=== PATIENT | female | born 1980 | race Caucasian/White ===

== ENCOUNTER 2021-10-04 19:45 | Emergency (ER) | payer BC, SELFPAY ==
[2021-10-04 19:46] VITALS: BP 198/106; PULSE 68; RESP 16; TEMP 36.8; O2SAT 97; BMI 37.7
--- NOTE | 2021-10-04 20:06 | XR_ITS ---
PROCEDURE INFORMATION: Exam: XR Right Foot Exam date and time: 10/04/2021 8:06 PM Age: 41 years old Clinical indication: Swelling, leg or foot; Patient HX: Fall today , pain and swelling, lateral pain and posterior ankle pain; Additional info: Injury TECHNIQUE: Imaging protocol: XR Right foot. Views: 3 or more views. COMPARISON: CR XR ANKLE RT MIN 3V 10/04/2021 8:11 PM FINDINGS: Bones/joints: There is no evidence of acute fracture.There is no evidence of malalignment or dislocation. Soft tissues: Normal. IMPRESSION: There is no evidence of acute fracture.There is no evidence of malalignment or dislocation.
--- NOTE | 2021-10-04 20:06 | XR_ITS ---
PROCEDURE INFORMATION: Exam: XR Right Ankle Exam date and time: 10/04/2021 8:06 PM Age: 41 years old Clinical indication: Swelling, leg or foot; Patient HX: Fall today, lateral pain and swelling, posterior pain; Additional info: Injury TECHNIQUE: Imaging protocol: XR Right ankle. Views: 3 or more views. COMPARISON: No relevant prior studies available. FINDINGS: Bones/joints: There is no evidence of acute fracture.There is no evidence of malalignment or dislocation. Soft tissues: Bimalleolar soft tissue swelling IMPRESSION: There is no evidence of acute fracture.There is no evidence of malalignment or dislocation.
--- NOTE | 2021-10-04 21:19 | HMH.EDLOEX ---
ED Disposition Clinical Impression: Ankle sprain and strain Sprain of foot, right Qualifiers: Encounter type: initial encounter Qualified Code(s): S93.601A - Unspecified sprain of right foot, initial encounter Disposition: Home, Self-Care Condition on Discharge: Good Instructions: DI for Ankle Sprain Additional Instructions: - use advil and tyenol , ice and elevate and call pcp for follow up and podiatry Referrals: Orville Knight MD [Primary Care Provider] - Sonia Norman DPM [Staff Physician] - - Critical Care Critical Care Time: No Attestation: On 10/04/21, the high probability of a clinically significant, sudden or life threatening deterioration of the following system(s) required my full and direct attention, intervention and personal management. The time I documented below is in addition to time spent performing reported procedures but includes the following listed in this critical care notation. Medical Decision Making - Medical Records Medical records reviewed: Yes: I reviewed the patient's medical records. - Pablo Inquiry Pt receiving controlled substance: No Vital Signs: 10/04/21 19:46 Temperature 98.3 F Temperature Source Oral Pulse Rate [Right Radial] 68 Respiratory Rate 16 Blood Pressure [Right Arm] 198/106 H Blood Pressure Mean [Right Arm] 136 Blood Pressure Source [Right Arm] Automatic Cuff Blood Pressure Position [Right Arm] Sitting 02 Sat by Pulse Oximetry 97 Oxygen Delivery Method Room Air Orders (Tests/Meds): ED MEDICATIONS Discontinued Medications Generic Name Dose Route Start Last Admin Trade Name Freq PRN Reason Stop Dose Admin Acetaminophen 1,000 mg 10/04/21 20:07 10/04/21 20:08 Acetaminophen 500mg Tab PO 10/04/21 20:08 1,000 mg ONCE ONE Administration - Radiology Data #1 Image(s): Ankle, Foot/Toes Image Reviewed: Yes I have reviewed radiologist's interpretation Preliminary Findings: No Fracture Seen Medical Decision Narrative: acute injury rt ankle/foot with sts and dec rom and neg xrays - will refer to podiatry Lower Extremity Injury HPI - General Chief Complaint: Extremity Injury, Lower Stated Complaint: AO fall injured R ankle Time Seen by Provider: 10/04/21 20:30 Mode of Arrival: Wheelchair Source of Information: Patient, Medical Record Limitations: No Limitations Description of Symptoms (Recalled from ER Triage Doc. by RN): Pt reports missing the curb and injuring her right ankle at 6pm. Right ankle is swollen. Pedal pulse present using doppler. - History of Present Illness HPI Narrative: acute tito injury to rt foot/ankle - pain and unable to bear wt and has sts MD complaint: ankle injury, foot injury Onset (ago): hour(s) Injury: Right: ankle, foot Type of Injury: eversion Place: street/outdoors Severity: moderate Exacerbating factors: weight bearing, movement, palpation Context: walking Associated symptoms: snap/pop sensation, swelling, unable to bear weight Other symptoms: none - Related Data Home Medications Medication Instructions Recorded Confirmed albuterol sulfate 90 mcg/actuation 2 puffs INHALATION Q4HP PRN 25 10/22/17 04/17/19 aerosol inhaler Days #18 estradiol 0.1 mg/24 hr semiweekly 1 patch TOPICAL WEEKLY 28 Days #8 10/22/17 04/17/19 transdermal patch lisinopril 10 mg tablet 10 mg PO QDAY 10/22/17 04/17/19 montelukast 10 mg tablet 10 mg PO DAILY 30 Days #30 10/22/17 04/17/19 Hydromorphone HCl [Hydromorphone 2 - 4 mg PO Q6HP PRN 04/17/19 04/17/19 2mg Tab] Ondansetron [Zofran 4mg ODT] 4 mg PO Q4HP PRN 04/17/19 04/17/19 Sulfamethoxazole/Trimethoprim 1 tab PO Q12H 04/17/19 04/17/19 [Sulfamethoxazole-Tmp Ds Tablet] Previous Rx's Medication Instructions Recorded Hydromorphone HCl [Dilaudid 2mg 2 mg PO Q6H #8 tab 04/17/19 tablet] Allergies Allergy/AdvReac Type Severity Reaction Status Date / Time Codeine Allergy Unknown UNKNOWN Uncoded 10/22/17 15:42 [facility]
[2021-10-04 21:52] VITALS: BP 185/107; PULSE 70; RESP 16; TEMP 36.6; O2SAT 99
== END 2021-10-04 21:55 | disposition home or self-care (01) ==
PROVIDERS: Emergency Provider Emergency Medicine; PCP Family Medicine
DX: S93.401A Sprain of unspecified ligament of right ankle, initial encounter (principal); X50.1XXA Overexertion from prolonged static or awkward postures, initial encounter; Y93.89 Activity, other specified; Y92.480 Sidewalk as the place of occurrence of the external cause
CPT/HCPCS: 73610; 73630; 99282

== ENCOUNTER → 2021-10-18 08:45 | Outpatient (CLI) | payer BC, SELFPAY ==
--- NOTE | 2021-10-18 09:22 | MR_ITS ---
PROCEDURE INFORMATION: Exam: MR Right Lower Extremity Other Than Joint Without and With Contrast; Foot Exam date and time: 10/18/2021 9:22 AM Age: 41 years old Clinical indication: Pain and injury or trauma; Blunt trauma and sprain or strain; Right; Patient HX: S/P fall with lateral and anterior RT ankle and foot pain. ; Additional info: Sprain and strain TECHNIQUE: Imaging protocol: MR of the Right lower extremity without and with intravenous contrast. Exam focused on the foot. Contrast material: PROHANCE; Contrast volume: 20 ml; Contrast route: IV; COMPARISON: 1. CR XR FOOT RT MIN 3V 10/04/2021 8:13 PM 2. CR XR ANKLE RT MIN 3V 10/04/2021 8:11 PM FINDINGS: Limitations: The large [id number] utilized to image the entire foot and ankle results in proportionally lower anatomic detail. Bones and cartilage: Osseous injuries in the ankle/hindfoot region are better demonstrated on the smaller cfyig-ut-eaze ankle MRI. Please see ankle MRI report for details. No fracture or dislocation involving the forefoot or midfoot. Joint spaces: A moderate effusion involves the ankle joint. LIGAMENTS: Lisfranc ligament: Unremarkable. No evidence of tear. TENDONS: Flexor tendons of foot: Unremarkable. No evidence of tear. Tibialis posterior tendon: Trace tenosynovitis involves the tibialis posterior tendon. Peroneal tendons: Trace tenosynovitis involves the peroneal tendon sheath. Extensor tendons of foot: Unremarkable. No evidence of tear. Tibialis anterior tendon: Unremarkable as visualized. Tarsal canal (Sinus tarsi): Edema in the sinus tarsi region is proportional to the adjacent soft tissue edema. The cervical ligament appears intact. Tarsal tunnel: Unremarkable. Muscles: Mild to moderate muscle edema is favored to be posttraumatic. Soft tissues: Severe soft tissue edema involves the foot. A crescentic heterogeneously enhancing focus of complex tissue located in the subcutaneous fat plantar to the fifth metatarsal head measures approximately 1.1 x 1.5 x 0.6 cm (series 9/image 20). A similar but smaller collection located plantar to the third metatarsal head measures 0.6 x 0.3 cm (series 9/image 17). The well-defined borders without significant surrounding edema favors a chronic pseudobursa, although traumatic soft tissue injuries cannot be entirely excluded. Plantar fascia: Probable contusions involving both sides of the calcaneocuboid joint. Other findings: Significant traumatic injuries involving the ankle/hindfoot are better documented on the dedicated ankle MRI. Please see ankle MRI report for details in the ankle/hindfoot region. IMPRESSION: 1. Significant traumatic injuries involving the ankle/hindfoot are better documented on the dedicated ankle MRI. Please see ankle MRI report for details in the ankle/hindfoot region. 2. No forefoot fracture. 3. Probable pseudobursae plantar to the third and fifth metatarsal heads, although posttraumatic soft tissue injury cannot be entirely excluded.
--- NOTE | 2021-10-18 09:22 | MR_ITS ---
PROCEDURE INFORMATION: Exam: MR Right Lower Extremity Joint Without and With Contrast; Ankle Exam date and time: 10/18/2021 9:22 AM Age: 41 years old Clinical indication: Injury or trauma; Sprain or strain; Right; Patient HX: S/P fall with lateral and anterior RT ankle and foot pain and edema. ; Additional info: Sprain and strain TECHNIQUE: Imaging protocol: MR of the Right lower extremity without and with contrast. Exam focused on the ankle. Contrast material: PROHANCE; Contrast volume: 20 ml; Contrast route: IV; COMPARISON: 1. CR XR ANKLE RT MIN 3V 10/04/2021 8:11 PM 2. CR XR FOOT RT MIN 3V 10/04/2021 8:13 PM FINDINGS: Limitations: Motion artifact. Bones and cartilage: A fracture involving the medial malleolus is approximately 1.7 mm displaced laterally and nondisplaced along the medial cortex (series 15/images 14-15). Bone marrow edema involves the tip of the fibula where there cortical irregularity favored to represent a small avulsion fracture. Bone detail would be more definitively identified utilizing CT. Bone marrow edema along the lateral aspect of the calcaneocuboid joint present both superiorly and inferiorly suggesting contusions. A contusion involves the posteromedial talar dome with additional patchy edema involving the talar head and body. Joint spaces: A moderate effusion involves the ankle joint. LIGAMENTS: Distal tibiofibular syndesmosis: Unremarkable. No tear. Anterior talofibular ligament: The anterior talofibular ligament has heterogeneous intermediate signal intensity. Since this injury appears to be in the subacute stage, followup imaging would better define whether this represents a low or intermediate grade partial-thickness tear. Posterior talofibular ligament: The posterior talofibular ligament is thickened and has heterogeneous increased T2 signal, likely representing low grade injury. Calcaneofibular ligament: The calcaneofibular ligament has intermediate signal intensity, suggesting low to intermediate grade injury that would be better defined on followup imaging since this injury is in the subacute stage. Deltoid ligament complex: A probable intermediate grade partial-thickness tear involves the deep component of the deltoid ligament. The superficial component has increased T2 signal and surrounding edema consistent with sprain. Assessment is limited due to the subacute nature of the injury an adjacent fracture. TENDONS: Flexor tendons of foot: Unremarkable as visualized. Tibialis posterior tendon: Trace tenosynovitis involves the tibialis posterior tendon. Peroneal tendons: Trace tenosynovitis involves the peroneal tendon sheath. Extensor tendons of foot: Unremarkable as visualized. Tibialis anterior tendon: Unremarkable. Achilles tendon: There is no tear or significant tendinosis involving the Achilles tendon. Tarsal canal (Sinus tarsi): Edema in the sinus tarsi region is proportional to the adjacent soft tissue edema. The cervical ligament appears intact. Tarsal tunnel: Unremarkable. Muscles: Mild edema involving the distal calf and foot musculature is likely posttraumatic. Soft tissues: A bilobed collection of high T1 signal along the anterolateral aspect of the ankle involves a 0.4 x 1.4 x 2.8 cm region (AP, ML, CC), as measured on series 12/image 16 and series 11/image 15. The appearance is most typical for hemorrhage in the soft tissues. Severe soft tissue edema involves the ankle and visualized portion of the foot. There is a focal collection of fluid measuring 1.5 x 1.3 cm along the far medial aspect of the anterior calcaneus near the calcaneonavicular joint that suggests of injury in this
== END ==
LOC: RAD 08:46
PROVIDERS: PCP Family Medicine; Visit Provider Podiatrist
DX: S93.601A Unspecified sprain of right foot, initial encounter (principal)
CPT/HCPCS: 73720; 73723; A9576

== ENCOUNTER → 2021-10-25 13:05 | Outpatient (CLI) | payer BC, SELFPAY ==
--- NOTE | 2021-10-25 13:06 | CT_ITS ---
FINAL REPORT CLINICAL HISTORY: fracture evaluation FINDINGS: CT RIGHT ANKLE WITHOUT CONTRAST Technique: Axial images through the right ankle were performed by computed tomography. Sagittal and coronal reconstruction images were performed. This study was performed with techniques to keep radiation doses as low as reasonably achievable (ALARA). Individualized dose reduction techniques using automated exposure control or adjustment of mA and/or kV according to the patient's size were employed. There is a comminuted fracture of the tip of the lateral malleolus. There is a tiny calcification in the posterior medial tibiotalar joint, tiny avulsion fracture not excluded. There is an avulsion fracture of the anterior lateral calcaneus. The talar dome is intact. The remaining osseous structures are intact. No dislocation identified. There is soft tissue edema. A small joint effusion is present. There is no loculated fluid collection. IMPRESSION: Fractures of the lateral malleolus and anterior calcaneus. Reviewed, Interpreted and Dictated by Tiffany Troncoso MD Transcribed by Wu Srinivasan Authenticated by Tiffany Troncoso MD on 10/25/2021 02:16:55 PM [facility]
== END ==
LOC: RAD 13:06
PROVIDERS: PCP Family Medicine; Visit Provider Podiatrist
DX: M25.571 Pain in right ankle and joints of right foot (principal); M25.371 Other instability, right ankle; S99.911A Unspecified injury of right ankle, initial encounter
CPT/HCPCS: 73700

== ENCOUNTER → 2021-11-25 13:38 | Outpatient (CLI) | payer BC, SELFPAY ==
--- NOTE | 2021-11-25 13:46 | XR_ITS ---
FINAL REPORT CLINICAL HISTORY: fracture follow up COMPARISON: 10/04/2021 FINDINGS: RIGHT ANKLE 3 views of the right ankle were obtained. Again seen is a nondisplaced fracture at the inferior tip of the lateral malleolus without significant callus formation. No acute fracture is identified. There are small calcifications adjacent to the lateral calcaneus. IMPRESSION: Nondisplaced fracture at the inferior tip of the lateral malleolus without significant callus formation seen. Reviewed, Interpreted and Dictated by Mauro Parson III, MD Transcribed by Cindy Rushing Authenticated by Mauro Parson III, MD on 11/25/2021 03:02:21 PM [facility]
--- NOTE | 2021-11-25 13:46 | XR_ITS ---
FINAL REPORT CLINICAL HISTORY: fracture follow up COMPARISON: 10/04/2021 FINDINGS: RIGHT FOOT 3 views of the right foot were obtained. Again seen is a fracture of the inferior tip of lateral malleolus which is partially visualized as well as a probable small fracture of the distal lateral calcaneus. No significant callus formation is seen. No acute fracture is identified. IMPRESSION: Fractures of the inferior tip of the lateral malleolus and lateral calcaneus without significant callus formation. Reviewed, Interpreted and Dictated by Mauro Parson III, MD Transcribed by Cindy Rushing Authenticated by Mauro Parson III, MD on 11/25/2021 03:02:20 PM [facility]
== END ==
LOC: RAD 13:40
PROVIDERS: PCP Nurse Practitioner Family; Visit Provider Podiatrist
DX: S92.001A Unspecified fracture of right calcaneus, initial encounter for closed fracture (principal); S93.621A Sprain of tarsometatarsal ligament of right foot, initial encounter; M25.571 Pain in right ankle and joints of right foot; S82.51XA Displaced fracture of medial malleolus of right tibia, initial encounter for closed fracture; S82.61XA Displaced fracture of lateral malleolus of right fibula, initial encounter for closed fracture
CPT/HCPCS: 73610; 73630

== ENCOUNTER → 2022-01-06 13:06 | Outpatient (CLI) | payer BC, SELFPAY ==
--- NOTE | 2022-01-06 13:14 | XR_ITS ---
FINAL REPORT CLINICAL HISTORY: fracture follow up COMPARISON: November 25, 2021 FINDINGS: RIGHT ANKLE: Three views of the right ankle were obtained. Again seen is cortical disruption of the medial aspect of the inferior lateral malleolus. No callus formation is seen. The joint spaces and mortise are intact. There is no soft tissue abnormality. IMPRESSION: Redemonstration of inferior lateral malleolus fracture, similar to prior. Reviewed, Interpreted and Dictated by Avi Nicole MD Transcribed by Wu Srinivasan Authenticated by Avi Nicole MD on 01/06/2022 02:29:54 PM [facility]
== END ==
LOC: RAD 13:07
PROVIDERS: PCP Family Medicine; Visit Provider Podiatrist
DX: M25.571 Pain in right ankle and joints of right foot (principal); S82.51XA Displaced fracture of medial malleolus of right tibia, initial encounter for closed fracture; S82.61XA Displaced fracture of lateral malleolus of right fibula, initial encounter for closed fracture; S92.001A Unspecified fracture of right calcaneus, initial encounter for closed fracture
CPT/HCPCS: 73610

== ENCOUNTER 2022-03-09 13:12 | Emergency (ER) | payer BC, SELFPAY ==
[2022-03-09 13:13] VITALS: BP 171/101; PULSE 99; RESP 18; TEMP 36.5; O2SAT 98; BMI 35.0
[2022-03-09 13:20] VITALS: BP 171/101; PULSE 77; O2SAT 98
--- NOTE | 2022-03-09 13:26 | CT_ITS ---
PROCEDURE INFORMATION: Exam: CT Abdomen And Pelvis Without Contrast Exam date and time: 03/09/2022 1:35 PM Age: 41 years old Clinical indication: Other: Right flank pain; Additional info: R/O stone, right flank pain TECHNIQUE: Imaging protocol: Computed tomography of the abdomen and pelvis without contrast. Radiation optimization: All CT scans at this facility use at least one of these dose optimization techniques: automated exposure control; mA and/or kV adjustment per patient size (includes targeted exams where dose is matched to clinical indication); or iterative reconstruction. COMPARISON: [facility] CT abdomen pelvis wo con 04/17/2019 5:03 AM FINDINGS: Liver: Normal. No mass. Gallbladder and bile ducts: Cholecystectomy. Pancreas: Normal. No ductal dilation. Spleen: Normal. No splenomegaly. Adrenal glands: Normal. No mass. Kidneys and ureters: 2.3 mm partially obstructing calculus distal right ureter. Associated moderate right hydronephrosis. Persistent bilateral punctate nonobstructing renal calculi. Stomach and bowel: Postoperative changes again demonstrated involving the stomach suggestive of previous gastric bypass. Clinically correlate. Scattered diverticula are demonstrated within the sigmoid colon. Findings compatible with mild diverticulosis. Appendix: No evidence of appendicitis. Intraperitoneal space: Unremarkable. No free air. No significant fluid collection. Vasculature: Unremarkable. No abdominal aortic aneurysm. Lymph nodes: Unremarkable. No enlarged lymph nodes. Urinary bladder: Unremarkable as visualized. Reproductive: Unremarkable as visualized. Bones/joints: See Stomach and bowel finding. Multilevel disc degeneration at L4-5 as well as at T11-12. Findings have minimally progressed at T11-12. Soft tissues: Unremarkable. IMPRESSION: 1. 2.3 mm partially obstructing calculus distal right ureter. Associated moderate right hydronephrosis. 2. Bilateral nephrolithiasis.
--- NOTE | 2022-03-09 13:29 | HMH.EDGENADL ---
ED Disposition Clinical Impression: Right ureteral calculus, Nephrolithiasis Disposition: Home, Self-Care Condition on Discharge: Good Instructions: DI for Kidney Stones Additional Instructions: Flomax as prescribed. Percocet as needed for pain. Zofran as needed for nausea. Additional instructions for KIDNEY STONE (URETERAL CALCULUS): See Dr. Montoya as soon as possible for further evaluation. Drink plenty of fluids. Strain your urine and save any stones you catch. Return immediately if you develop a fever or have uncontrollable vomiting or uncontrollable pain. What is known about DIET and KIDNEY STONES: Most kidney stones contain calcium oxalate. The logical assumption would be that you should avoid calcium and oxalate in your diet. Contrary to what you would think, this is not necessarily the case. What is actually recommended for kidney stone prevention is a diet that contains MODERATELY HIGH AMOUNTS OF CALCIUM and is LOW IN SODIUM with PLENTY OF FLUIDS. Avoiding oxalate containing foods is recommended by some experts, but is controversial. Following the DASH (Dietary Approaches to Stop Hypertension) has been shown to significantly reduce the incidence of kidney stones. The DASH diet encourages you to reduce the sodium in your diet and eat a variety of foods rich in nutrients that help lower blood pressure, such as potassium, calcium and magnesium. Recommendations: Fluids: It is widely agreed upon that you need to drink plenty of fluids. A minimum would be 8-10 glasses (8 oz each) of fluid per day. Some experts recommend as much as 14-15 glasses a day. Sodium: The way to lower calcium in your urine is to lower your sodium intake. Try not to get more than 1500 mg a day. Calcium: Dietary calcium prevents absorption of oxalate. Make sure you get about 1000 to 1200 mg a day. You can get enough calcium from dairy products without taking supplements. Calcium should be ingested with meals, not in between meals. You need to get your calcium at mealtime to decrease the absorption of oxalate from other foods. Oxalate: Although some experts recommend avoiding oxalate in your diet, there have been no studies that prove this works. Eating more calcium will reduce oxalate absorption, and is probably all that is needed to reduce oxalate in your urine. Oxalate containing foods are generally good for you in all other respects - leafy greens, nuts, etc... So avoiding them unnecessarily might not be the best thing for your health. If you want to do something to avoid oxalate, avoid spinach and rhubarb - those are extremely high in oxalate (or at least eat a high calcium meal with these). ALSO: If you retrieve your stone by straining your urine, take it to your physician for stone analysis, which can help tailor your dietary recommendations. For further reading, check out the [facility] web page about the kidney stone diet: [email or web address]/ Additional instructions for CONTROLLED SUBSTANCES: You have been prescribed a medication that is a controlled substance. Controlled substances include pain medications known as opiates and sedative nerve medications known as benzodiazepines. Tramadol, fioricet, and gabapentin are also controlled substances. Some common opiates include: Codeine (such as Tylenol #3) Hydrocodone (Vicodin, Lortab, Lorcet, [place]) Oxycodone (Percocet, Percodan, Oxycodone, Oxy IR) Some common benzodiazepines include: Diazepam (Valium) Lorazepam (Ativan) Alprazolam (Xanax) Clonazepam (Klonopin) Oxazepam (Serax) All of these controlled substances are highly addictive and frequently abused. Misuse can and frequently does lead to addiction as well as overdose and . Medication should be stored in a locked cabinet or other secure storage unit. Do not store the medication in a motor vehicle. Short term supplies, 3 days
[2022-03-09 13:30] VITALS: BP 174/108; PULSE 79; O2SAT 96
[2022-03-09 13:30] LABS: Microscopic, Urine URINE MICROSCOPIC (MICROSCOPIC)
--- NOTE | 2022-03-09 13:38 | PC.NURSE ---
TO CT PER WHEELCHAIR
[2022-03-09 13:39] LABS: Appearance,Urine CLEAR (Clear); Blood, Urine 3+ (Negative); Color,Urine YELLOW (Yellow); Glucose,Urine (UA) Negative (Negative); Ketones,Urine TRACE (Negative); Leukocyte Esterase,Urine Negative (Negative); Nitrate,Urine Negative (Negative); Protein,Urine TRACE (Negative); Specific Gravity, Urine 1.025 (1.005-1.030); Urobilinogen,Urine 0.2 EU/dl (0.2)
[2022-03-09 13:45] VITALS: BP 166/89; O2SAT 96
[2022-03-09 13:54] LABS: Chloride 101 mmol/L (98-107)
[2022-03-09 13:55] LABS: Potassium 3.4 mmoL/L (3.5-5.1); Sodium 139 mmol/L (136-145)
[2022-03-09 13:57] LABS: Alanine Aminotransferase 45 U/L (12-78); Alkaline Phosphatase 99 U/L (38-126); Aspartate Amino Transferase 77 U/L (14-36); Bilirubin,Total 0.7 mg/dl (0.2-1.3); Blood Urea Nitrogen 11 mg/dl (7-17); Creatinine Clearance Estimated 130 mL/min (50-200); Estimated Glomerular Filt Rate 79 ml/min (>60); GFR (African American) 95 ML/MIN (>60)
[2022-03-09 13:58] LABS: Albumin Level 4.7 g/dl (3.5-5.0); Albumin/Globulin Ratio 1.6 (1.1-1.8); Anion Gap 13.4 mEq/L (5-15); Calcium 9.6 mg/dl (8.4-10.2); Carbon Dioxide 28 mmol/L (22.0-30.0); Glucose 132 mg/dl (74-100); Total Protein,Serum 7.7 g/dl (6.3-8.2)
[2022-03-09 14:00] VITALS: BP 150/82; PULSE 77; O2SAT 97
[2022-03-09 14:07] LABS: Basophils # 0.2 K/mm3 (0-0.2); Basophils % 2.4 % (0.1-2.0); Eosinophils # 0.2 K/mm3 (0.0-0.4); Eosinophils % 2.9 % (0.1-12.0); Hematocrit 48.9 % (37.0-47.0); Hemoglobin 15.5 g/dL (12.2-16.2); Lymphocytes # 1.4 K/mm3 (0.7-4.5); Lymphocytes % 20.7 % (10-50); Mean Corpuscular HGB Conc 31.7 g/dL (31.8-35.4); Mean Corpuscular Hemoglobin 29.8 pg (27.0-31.2); Mean Platelet Volume 8.2 fl (7.4-10.4); Monocytes # 0.4 K/mm3 (0.1-1.0); Monocytes % 5.3 % (1.7-9.3); Neutrophils # 4.7 K/mm3 (1.8-7.8); Neutrophils % 68.8 % (37.0-80.0); Platelet Count 336 K/mm3 (142-424); White Blood Count 6.8 K/mm3 (4.8-10.8)
[2022-03-09 14:49] LABS: Bilirubin,Urine 1+ (Negative)
[2022-03-09 14:49] LABS: Lipase 157 U/L (23-300)
[2022-03-09 14:50] LABS: Squamous Epithelial Cell,Urine Occasional #/hpf (0-5)
[2022-03-09 14:51] LABS: Bacteria,Urine Trace /lpf
[2022-03-09 15:37] VITALS: BP 150/75; PULSE 73; RESP 16; TEMP 36.5; O2SAT 97
== END 2022-03-09 15:39 | disposition home or self-care (01) ==
PROVIDERS: Emergency Provider Emergency Medicine; PCP Nurse Practitioner Family
DX: N20.2 Calculus of kidney with calculus of ureter (principal); Z87.442 Personal history of urinary calculi; Z88.6 Allergy status to analgesic agent; J45.909 Unspecified asthma, uncomplicated; I10 Essential (primary) hypertension; G43.909 Migraine, unspecified, not intractable, without status migrainosus; F41.9 Anxiety disorder, unspecified; F32.A Depression, unspecified; Z90.49 Acquired absence of other specified parts of digestive tract; Z90.79 Acquired absence of other genital organ(s)
CPT/HCPCS: 74176; 80053; 81001; 83690; 85025; 96365; 96374; 96375; 99284; J2405

== ENCOUNTER → 2022-05-13 16:12 | Outpatient (CLI) | payer BC, SELFPAY ==
--- NOTE | 2022-05-13 16:20 | XR_ITS ---
PROCEDURE INFORMATION: Exam: XR Cervical Spine Exam date and time: 05/13/2022 4:36 PM Age: 41 years old Clinical indication: Other: Headache; Additional info: Neck pain, headaches TECHNIQUE: Imaging protocol: Radiologic exam of the cervical spine. Views: 4 or 5 views. COMPARISON: No relevant prior studies available. FINDINGS: Bones/joints: No acute fracture or subluxation. Mild disc space narrowing at C4-C5. No bony foraminal stenosis. Soft tissues: Unremarkable. Lungs: Lung apices are clear. IMPRESSION: No acute findings.
== END ==
LOC: RAD 16:14
PROVIDERS: PCP Family Medicine; Visit Provider Nurse Practitioner Family
DX: M54.2 Cervicalgia (principal)
CPT/HCPCS: 72050

== ENCOUNTER 2022-08-08 11:39 | Emergency (ER) | payer BC, SELFPAY ==
[2022-08-08 12:44] VITALS: BP 0/0; PULSE 0; RESP 0; TEMP -17.7; TEMP 0; O2SAT 0
== END 2022-08-08 12:45 | disposition left against medical advice (07) ==
LOC: UTC 11:42
PROVIDERS: Emergency Provider Physician Assistant; PCP Family Medicine
DX: Z53.21 Procedure and treatment not carried out due to patient leaving prior to being seen by health care provider (principal)

== ENCOUNTER → 2022-08-19 15:19 | Outpatient (CLI) | payer BC, SELFPAY ==
--- NOTE | 2022-08-19 15:25 | CT_ITS ---
FINAL REPORT TECHNIQUE: Axial images through the abdomen and pelvis were performed without contrast. This study was performed with techniques to keep radiation doses as low as reasonably achievable, (ALARA). Individualized dose reduction techniques using automated exposure control or adjustment of mA and/or kV according to the patient's size were employed. CLINICAL HISTORY: NEPHOLITHIASIS,RIGHT FLANK PAIN , HEMATURIA, HX OF KIDNEY STONES , PAIN X 6DAYS. COMPARISON: 03/09/2022 FINDINGS: ABDOMEN: The lung bases are clear. The heart size is normal. Limited images of the liver are unremarkable. The patient is status post hysterectomy. There are postoperative changes from gastric sleeve. The spleen is normal. No adrenal mass is identified. The aorta is normal in caliber. There is no significant free fluid or adenopathy. There are multiple bilateral nonobstructing stones measuring 3 mm or less. There is no hydronephrosis. PELVIS: The appendix is normal. No ureteral stone is identified. The patient is status post hysterectomy. The urinary bladder is unremarkable. There is no significant free fluid or adenopathy. IMPRESSION: Bilateral nephrolithiasis without hydronephrosis. Reviewed, Interpreted and Dictated by Mauro Parson III, MD Transcribed by Court Sahu Authenticated and [facility]
== END ==
PROVIDERS: PCP Nurse Practitioner Family; Visit Provider Nurse Practitioner Family
DX: N20.0 Calculus of kidney (principal)
CPT/HCPCS: 74176

== ENCOUNTER → 2022-12-31 09:44 | Outpatient (CLI) | payer BC, SELFPAY ==
--- NOTE | 2022-12-31 09:54 | CT_ITS ---
FINAL REPORT TECHNIQUE: Multiple axial CT sections were performed from the foramen magnum to the vertex. Coronal reformatted images were also obtained. Precontrast and postcontrast injection images were obtained. This study was performed with technique to keep radiation doses as low as reasonably achievable, (ALARA). Individualized dose reduction techniques using automated exposure control or adjustment of mA and/or kV according to the patient size were employed. CLINICAL HISTORY: HEADACHE, patient states back of neck and head and into right side of head COMPARISON: NONE FINDINGS: The ventricles are normal in size. There is no evidence of hemorrhage. No masses are identified. No extra-axial fluid collection is seen. There is presumed postoperative changes in the sinuses. There is moderate diffuse mucoperiosteal thickening in the sinuses consistent with widespread sinusitis. No osseous abnormality is seen on the bone window images. Postcontrast images demonstrate no abnormal enhancement. IMPRESSION: Widespread sinusitis. Reviewed, Interpreted and Dictated by Mauro Parson III, MD Transcribed by Eri Kay Authenticated and [facility]
[2022-12-31 10:32] LABS: Blood Urea Nitrogen 16 mg/dl (7-17); Estimated Glomerular Filt Rate 78 ml/min (>60); GFR (African American) 95 ML/MIN (>60)
== END ==
LOC: RAD 09:45
PROVIDERS: PCP Nurse Practitioner Family; Visit Provider Nurse Practitioner Family
DX: G44.89 Other headache syndrome (principal)
CPT/HCPCS: 36415; 70470; 82565; 84520; Q9966

== ENCOUNTER → 2023-06-04 16:03 | Outpatient (CLI) | payer BC, SELFPAY ==
[2023-06-04 14:34] LABS: Amphetamine/Metha Screen,Urine Negative ng/ml (<1000); Phencyclidine Screen,Urine Negative ng/ml (<25)
[2023-06-04 14:35] LABS: Barbiturates Screen,Urine Negative ng/ml (<200); Opiate Screen,Urine Negative ng/ml (<300)
[2023-06-04 14:36] LABS: Benzodiazepines Screen,Urine Negative ng/ml (<200)
[2023-06-04 14:37] LABS: Cannabinoid Screen,Urine Negative ng/ml (<50); Cocaine Screen,Urine Negative ng/ml (<300)
[2023-06-04 14:38] LABS: Methadone Screen,Urine Negative ng/ml (<300)
== END ==
PROVIDERS: Visit Provider Nurse Practitioner Psychiatric/Mental Health
DX: F41.1 Generalized anxiety disorder (principal); Z91.89 Other specified personal risk factors, not elsewhere classified
CPT/HCPCS: 80305

== ENCOUNTER 2024-05-02 11:33 | Outpatient (CLI) | payer BC, SELFPAY ==
--- NOTE | 2024-05-02 11:35 | XR_ITS ---
FINAL REPORT CLINICAL HISTORY: Ankle Pain FINDINGS: RIGHT ANKLE 3 views of the right ankle were obtained. There is no acute fracture or dislocation. The mortise is intact. There is degenerative joint disease. Visualized joint spaces are normally aligned. Soft tissues are unremarkable. IMPRESSION: No acute bony abnormality. Reviewed, Interpreted and Dictated by Tiffany Troncoso MD Transcribed by Cindy Rushing Authenticated and [facility]
--- NOTE | 2024-05-02 11:35 | XR_ITS ---
FINAL REPORT CLINICAL HISTORY: Foot Pain FINDINGS: RIGHT FOOT 3 views of the right foot were obtained. There is no acute fracture or dislocation. Visualized joint spaces are normally aligned. Soft tissues are unremarkable. IMPRESSION: No acute bony abnormality. Reviewed, Interpreted and Dictated by Tiffany Troncoso MD Transcribed by Cindy Rushing Authenticated and [facility]
== END 2024-05-02 23:59 | disposition home or self-care (01) ==
LOC: RAD 11:33
PROVIDERS: PCP Nurse Practitioner Family; Visit Provider Podiatrist
DX: M79.671 Pain in right foot (principal); M25.571 Pain in right ankle and joints of right foot
CPT/HCPCS: 73610; 73630